=== PATIENT | male | born 1990 | race Two or more races ===

== ENCOUNTER 2018-07-11 15:40 | Emergency (ER) | payer MEDICAID ==
[~2018-07-11] VITALS: Ht 167.6 cm; Wt 81.6 kg
[2018-07-11 15:40] VITALS: BP 122/73
== END 2018-07-11 18:48 | disposition home or self-care (01) ==
LOC: ER 15:45
DX: S62.336A Displaced fracture of neck of fifth metacarpal bone, right hand, initial encounter for closed fracture (principal); W22.01XA Walked into wall, initial encounter; Y93.89 Activity, other specified; Y92.89 Other specified places as the place of occurrence of the external cause; Y99.8 Other external cause status
CPT/HCPCS: 29125; 73130; 99283; A4606